=== PATIENT | male | born 1970 | race Caucasian/White ===

== ENCOUNTER → 2017-05-31 | Outpatient (CLI) | payer OTHER | LOC: M WUC 17:20 | DX: M25.532 Pain in left wrist (principal) | CPT/HCPCS: 73110 ==

== ENCOUNTER 2017-10-22 21:51 | Emergency (ER) | payer OTHER, SELFPAY ==
[2017-10-22] MEDS: NAPROXEN 250 MG TAB PO (23:55)
[2017-10-22] MEDS: diazePAM 5 MG TAB PO (23:55)
== END 2017-10-23 00:02 | disposition home or self-care (01) ==
LOC: M ED 10-23 00:02
DX: S29.011A Strain of muscle and tendon of front wall of thorax, initial encounter (principal); X58.XXXA Exposure to other specified factors, initial encounter; Y92.89 Other specified places as the place of occurrence of the external cause; F17.210 Nicotine dependence, cigarettes, uncomplicated
CPT/HCPCS: 71046

== ENCOUNTER 2022-07-23 15:51 | Emergency (ER) | payer OTHER ==
[~2022-07-23] VITALS: Ht 185.4 cm; Wt 85.7 kg
[~2022-07-23 15:51] MED LIST: NAPR-837 PO; ROBA500T PO
[2022-07-23] MEDS ORDERED: ACE65ERTAB PO (16:01)
[2022-07-23] MEDS ORDERED: KETOROLAC 30 MG/ML 1ML VIAL IV ONE (19:00)
[2022-07-23] MEDS ORDERED: IBUP80TA PO (19:04)
[2022-07-23] MEDS ORDERED: PERC5TAB12 PO (19:04)
[2022-07-23] MEDS ORDERED: ACET325C5 PO (19:04)
[2022-07-23 19:26] VITALS: BP 190/100
== END 2022-07-23 19:32 | disposition home or self-care (01) ==
LOC: M ED 15:51
DX: S20.212A Contusion of left front wall of thorax, initial encounter (principal); F17.200 Nicotine dependence, unspecified, uncomplicated; W01.118A Fall on same level from slipping, tripping and stumbling with subsequent striking against other sharp object, initial encounter; Y93.K1 Activity, walking an animal; Z79.1 Long term (current) use of non-steroidal anti-inflammatories (NSAID); Z79.899 Other long term (current) drug therapy
CPT/HCPCS: 71101; 99283; J1885